=== PATIENT | male | born 1990 | race Caucasian/White ===

== ENCOUNTER 2019-09-19 13:33 | Emergency (ER) | payer BC ==
[~2019-09-19] VITALS: Ht 188 cm; Wt 136.0 kg
[2019-09-19 13:51] VITALS: BP 130/86
== END 2019-09-19 14:50 | disposition home or self-care (01) ==
LOC: ER 13:33
DX: Z03.818 Encounter for observation for suspected exposure to other biological agents ruled out (principal); M79.18 Myalgia, other site; R19.7 Diarrhea, unspecified; R50.9 Fever, unspecified
CPT/HCPCS: 36415; 99283; C9803

== ENCOUNTER 2020-05-14 09:23 | Outpatient (CLI) | payer OTHER | END 2020-05-14 23:59 | disposition home or self-care (01) | LOC: LAB 09:23 | PROVIDERS: ATTEND Internal Medicine Infectious Disease | DX: Z01.84 Encounter for antibody response examination (principal) ==